=== PATIENT | female | born 1985 | race Hispanic/Latino ===

== ENCOUNTER 2017-11-17 17:16 | Emergency (ER) | payer SELFPAY ==
[2017-11-17] MEDS ORDERED: HYDROXYZINE HCL 25 MG TABLET ONE (17:57)
[2017-11-17] MEDS ORDERED: METHYLPREDNISOLONE SOD SUCC 40MG/ML 1ML ONE (18:53)
== END 2017-11-17 19:37 | disposition home or self-care (01) ==
LOC: EDH 17:16
DX: F41.1 Generalized anxiety disorder (principal)
CPT/HCPCS: 99284; J2920

== ENCOUNTER 2021-07-22 08:44 | Emergency (ER) | payer SELFPAY ==
[~2021-07-22] VITALS: Ht 152.4 cm; Wt 99.8 kg
[2021-07-22 09:39] LABS: BASOPHILS % (AUTO) 0.3 % (0.0-5.0); EOSINOPHILS % (AUTO) 0.8 % (0.0-8.0); HEMATOCRIT 40.1 % (36-48); LYMPHOCYTES % (AUTO) 30.8 % (21.0-51.0); MEAN CORPUSCULAR HEMOGLOBIN 23.4 pg (27.0-33.0); MEAN CORPUSCULAR HGB CONC 31.2 g/dL (32.0-36.0); MEAN CORPUSCULAR VOLUME 75.1 fL (79-99); NEUTROPHILS % (AUTO) 61.8 % (40.0-77.0); PLATELET COUNT (AUTO) 389 K/uL (130-400); RED BLOOD CELL COUNT(AUTO) 5.34 MIL/uL (4.00-5.50); RED CELL DISTRIBUTION WIDTH 15.7 % (11.0-15.5); WHITE BLOOD COUNT (AUTO) 11.4 K/uL (4.8-10.8)
[2021-07-22 09:41] LABS: CREATININE 0.9 mg/dL (0.5-1.5); POTASSIUM 3.6 mmol/L (3.5-5.1)
[2021-07-22 09:46] LABS: ALBUMIN 3.5 g/dL (3.5-5.0); BILIRUBIN,TOTAL 0.2 mg/dL (0.2-1.0); TOTAL PROTEIN, SERUM 7.1 g/dL (6.0-8.3)
[2021-07-22] MEDS: ESTROGENS,CONJUGATED 25 MG/VIAL IV SCH ×4 (11:00→12:02)
[2021-07-22] MEDS ORDERED: ESTROGENS,CONJUGATED 25 MG/VIAL IM SCH ×2 (11:30→12:00)
[2021-07-22] MEDS ORDERED: NORE-134 PO (11:39)
[2021-07-22 12:30] VITALS: BP 126/74
== END 2021-07-22 13:06 | disposition home or self-care (01) ==
LOC: EDH 08:44
DX: N92.1 Excessive and frequent menstruation with irregular cycle (principal); N93.8 Other specified abnormal uterine and vaginal bleeding; E66.01 Morbid (severe) obesity due to excess calories; Z68.41 Body mass index [BMI] 40.0-44.9, adult
CPT/HCPCS: 36415; 80053; 84703; 85025; 86900; 86901; 96372; 99284; J1410 ×2

== ENCOUNTER 2021-07-26 16:04 | Emergency (ER) | payer SELFPAY ==
[~2021-07-26] VITALS: Ht 154.9 cm; Wt 99.8 kg
[~2021-07-26 16:04] MED LIST: NORE-134 PO
[2021-07-26 16:30] LABS: APPEARANCE,URINE SL CLOUDY (CLEAR); BILIRUBIN,URINE MODERATE (NEGATIVE); COLOR,URINE ORANGE (YELLOW); GLUCOSE, URINE (UA) NEGATIVE (NEGATIVE); KETONES,URINE >=80 mg/dL (NEGATIVE); LEUKOCYTE ESTERASE ,URINE TRACE (NEGATIVE); NITRATE,URINE POSITIVE (NEGATIVE); OCCULT BLOOD,URINE LARGE (NEGATIVE); PROTEIN,URINE >=300 mg/dL (NEGATIVE)
[2021-07-26 16:37] LABS: BACTERIA,URINE Few /HPF (None Seen); MUCUS,URINE Few LPF (None Seen); SQUAMOUS EPITHELIAL CELL,UR Few /HPF (0-2)
[2021-07-26 16:43] LABS: BASOPHILS % (AUTO) 0.5 % (0.0-5.0); EOSINOPHILS % (AUTO) 0.3 % (0.0-8.0); HEMATOCRIT 32.8 % (36-48); LYMPHOCYTES % (AUTO) 21.7 % (21.0-51.0); MEAN CORPUSCULAR HEMOGLOBIN 23.8 pg (27.0-33.0); MEAN CORPUSCULAR VOLUME 74.4 fL (79-99); MONOCYTES % (AUTO) 5.6 % (3.0-13.0); NEUTROPHILS % (AUTO) 71.7 % (40.0-77.0); PLATELET COUNT (AUTO) 289 K/uL (130-400); RED BLOOD CELL COUNT(AUTO) 4.41 MIL/uL (4.00-5.50); RED CELL DISTRIBUTION WIDTH 15.6 % (11.0-15.5); WHITE BLOOD COUNT (AUTO) 10.6 K/uL (4.8-10.8)
[2021-07-26] MEDS ORDERED: 0.9%NACL 1000ML 1,000 ML IV ONE ×2 (17:00→17:09)
[2021-07-26] MEDS ORDERED: CEFTRIAXONE 1G VIAL IVP ONE (17:00)
[2021-07-26 17:12] VITALS: BP 122/75
[2021-07-26] MEDS ORDERED: CEPH500B PO (17:49)
== END 2021-07-26 18:05 | disposition home or self-care (01) ==
LOC: EDH 16:04
DX: N39.0 Urinary tract infection, site not specified (principal); D25.9 Leiomyoma of uterus, unspecified; N93.8 Other specified abnormal uterine and vaginal bleeding; E66.9 Obesity, unspecified; Z68.41 Body mass index [BMI] 40.0-44.9, adult
CPT/HCPCS: 36415; 81001; 84703; 85025; 86850; 86900; 86901; 87077; 87088; 87186; 96361; 96374; 99283; J0696; J7030

== ENCOUNTER 2021-08-03 09:26 | Emergency (ER) | payer SELFPAY ==
[~2021-08-03] VITALS: Ht 154.9 cm; Wt 99.8 kg
[~2021-08-03 09:26] MED LIST changes: +CEPH500B PO
[2021-08-03 10:01] LABS: BASOPHILS % (AUTO) 0.2 % (0.0-5.0); EOSINOPHILS % (AUTO) 1.3 % (0.0-8.0); HEMATOCRIT 33.5 % (36-48); LYMPHOCYTES % (AUTO) 22.8 % (21.0-51.0); MEAN CORPUSCULAR HEMOGLOBIN 23.2 pg (27.0-33.0); MEAN CORPUSCULAR VOLUME 74.8 fL (79-99); MONOCYTES % (AUTO) 5.7 % (3.0-13.0); NEUTROPHILS % (AUTO) 69.8 % (40.0-77.0); PLATELET COUNT (AUTO) 320 K/uL (130-400); RED BLOOD CELL COUNT(AUTO) 4.48 MIL/uL (4.00-5.50); RED CELL DISTRIBUTION WIDTH 15.9 % (11.0-15.5); WHITE BLOOD COUNT (AUTO) 8.3 K/uL (4.8-10.8)
[2021-08-03 10:12] LABS: CREATININE 0.8 mg/dL (0.5-1.5); POTASSIUM 4.2 mmol/L (3.5-5.1)
[2021-08-03 10:17] LABS: ALBUMIN 3.3 g/dL (3.5-5.0); BILIRUBIN,TOTAL 0.2 mg/dL (0.2-1.0); TOTAL PROTEIN, SERUM 7.4 g/dL (6.0-8.3)
[2021-08-03 10:32] LABS: APPEARANCE,URINE Clear (CLEAR); BILIRUBIN,URINE Negative (NEGATIVE); COLOR,URINE Yellow (YELLOW); GLUCOSE, URINE (UA) Negative (NEGATIVE); KETONES,URINE Negative (NEGATIVE); LEUKOCYTE ESTERASE ,URINE Trace (NEGATIVE); NITRATE,URINE Negative (NEGATIVE); OCCULT BLOOD,URINE Large (NEGATIVE); PH,URINE 5.5 (5.0-8.0); PROTEIN,URINE Trace mg/dL (NEGATIVE); UROBILINOGEN,URINE 0.2 mg/dL (0.2-1.0)
[2021-08-03 10:33] LABS: HCG,QUAL RESULT NEGATIVE (NEGATIVE)
[2021-08-03 10:40] LABS: BACTERIA,URINE Rare /HPF (None Seen); MUCUS,URINE Few LPF (None Seen); SQUAMOUS EPITHELIAL CELL,UR Few /HPF (0-2); WBC,URINE 0-1 /HPF (0-1)
[2021-08-03 12:57] VITALS: BP 158/86
== END 2021-08-03 13:40 | disposition home or self-care (01) ==
LOC: EDH 09:26
DX: N93.8 Other specified abnormal uterine and vaginal bleeding (principal); D25.9 Leiomyoma of uterus, unspecified; E66.9 Obesity, unspecified; Z68.41 Body mass index [BMI] 40.0-44.9, adult; Z79.899 Other long term (current) drug therapy; Z98.890 Other specified postprocedural states; Z90.89 Acquired absence of other organs
CPT/HCPCS: 36415; 80053; 81001; 81025; 85025; 86850; 86900; 86901

== ENCOUNTER 2022-09-02 17:59 | Emergency (ER) | payer OTHER ==
[~2022-09-02] VITALS: Ht 154.9 cm; Wt 99.8 kg
[2022-09-02] MEDS ORDERED: LORAZEPAM 2 MG/ML 1 ML VIAL IM ONE (20:00)
[2022-09-02 20:28] VITALS: BP 159/63
[2022-09-03] MEDS ORDERED: HYDR-3422 PO (22:32)
== END 2022-09-02 20:34 | disposition home or self-care (01) ==
LOC: EDH 17:59
DX: F41.9 Anxiety disorder, unspecified (principal); D64.9 Anemia, unspecified; F32.A Depression, unspecified; Z98.890 Other specified postprocedural states; Z90.89 Acquired absence of other organs
CPT/HCPCS: 99283; 96372; J2060

== ENCOUNTER 2022-09-03 20:46 | Emergency (ER) | payer OTHER ==
[~2022-09-03] VITALS: Ht 154.9 cm; Wt 101.6 kg
[2022-09-03 22:19] VITALS: BP 138/74
[2022-09-03] MEDS ORDERED: LORAZEPAM 1 MG TABLET PO ONE (22:30)
[2022-09-03] MEDS ORDERED: HYDR-3422 PO (22:32)
[2022-09-03 22:39] LABS: APPEARANCE,URINE CLOUDY (CLEAR); BILIRUBIN,URINE NEGATIVE (NEGATIVE); COLOR,URINE YELLOW (YELLOW); GLUCOSE, URINE (UA) NEGATIVE (NEGATIVE); KETONES,URINE NEGATIVE (NEGATIVE); LEUKOCYTE ESTERASE ,URINE 75 Leu/uL (NEGATIVE); NITRATE,URINE NEGATIVE (NEGATIVE); OCCULT BLOOD,URINE NEGATIVE (NEGATIVE); PH,URINE 5.5 (5.0-8.0); PROTEIN,URINE 10 mg/dL (NEGATIVE); UROBILINOGEN,URINE 0.2 mg/dL (0.2-1.0)
[2022-09-03 22:41] LABS: HCG,QUALITATIVE URINE NEGATIVE (NEGATIVE)
[2022-09-03 22:45] LABS: BACTERIA,URINE FEW /HPF (None Seen); MUCUS,URINE RARE LPF (None Seen); SQUAMOUS EPITHELIAL CELL,UR MOD /HPF (0-2)
== END 2022-09-03 23:01 | disposition home or self-care (01) ==
LOC: EDH 20:46
DX: F41.9 Anxiety disorder, unspecified (principal); F32.A Depression, unspecified
CPT/HCPCS: 81001; 81025; 87088; 93005

== ENCOUNTER 2022-09-05 20:16 | Emergency (ER) | payer OTHER ==
[~2022-09-05] VITALS: Ht 154.9 cm; Wt 100.2 kg
[~2022-09-05 20:16] MED LIST changes: +HYDR-3422 PO
[2022-09-05 20:18] VITALS: BP 143/68
[2022-09-05] MEDS ORDERED: HYDR-3421 PO (21:22)
[2022-09-05] MEDS ORDERED: LORAZEPAM 1 MG TABLET PO ONE (21:30)
== END 2022-09-05 21:57 | disposition home or self-care (01) ==
LOC: EDH 20:16
DX: F41.9 Anxiety disorder, unspecified (principal); E66.01 Morbid (severe) obesity due to excess calories; Z68.41 Body mass index [BMI] 40.0-44.9, adult

== ENCOUNTER 2023-04-25 14:41 | Emergency (ER) | payer BC, OTHER ==
[~2023-04-25] VITALS: Ht 154.9 cm; Wt 99.8 kg
[~2023-04-25 14:41] MED LIST changes: +HYDR-3421 PO
[2023-04-25 14:42] VITALS: BP 141/91
[2023-04-25] MEDS ORDERED: HYDROXYZINE 25 MG TABLET PO SCH (17:30)
[2023-04-25 17:51] LABS: APPEARANCE,URINE CLOUDY (CLEAR); BILIRUBIN,URINE NEGATIVE (NEGATIVE); COLOR,URINE YELLOW (YELLOW); GLUCOSE, URINE (UA) NEGATIVE (NEGATIVE); KETONES,URINE 60 mg/dL (NEGATIVE); LEUKOCYTE ESTERASE ,URINE 75 Leu/uL (NEGATIVE); NITRATE,URINE NEGATIVE (NEGATIVE); OCCULT BLOOD,URINE NEGATIVE (NEGATIVE); PH,URINE 5.5 (5.0-8.0); PROTEIN,URINE 20 mg/dL (NEGATIVE); UROBILINOGEN,URINE 0.2 mg/dL (0.2-1.0)
[2023-04-25 17:55] LABS: BACTERIA,URINE RARE /HPF (None Seen); MUCUS,URINE FEW LPF (None Seen); RBC,URINE 0-1 /HPF (0-1); SQUAMOUS EPITHELIAL CELL,UR MOD /HPF (0-2)
[2023-04-25 17:58] LABS: HCG,QUALITATIVE URINE NEGATIVE (NEGATIVE)
[2023-04-25 18:15] LABS: BASOPHILS % (AUTO) 0.3 % (0.0-5.0); EOSINOPHILS % (AUTO) 0.8 % (0.0-8.0); HEMATOCRIT 45.6 % (36-48); LYMPHOCYTES % (AUTO) 23.9 % (21.0-51.0); MEAN CORPUSCULAR HEMOGLOBIN 25.1 pg (27.0-33.0); MEAN CORPUSCULAR HGB CONC 32.5 g/dL (32.0-36.0); MEAN CORPUSCULAR VOLUME 77.4 fL (79-99); NEUTROPHILS % (AUTO) 68.8 % (40.0-77.0); PLATELET COUNT (AUTO) 231 K/uL (130-400); RED BLOOD CELL COUNT(AUTO) 5.89 MIL/uL (4.00-5.50); RED CELL DISTRIBUTION WIDTH 14.6 % (11.0-15.5); WHITE BLOOD COUNT (AUTO) 8.8 K/uL (4.8-10.8)
[2023-04-25] MEDS ORDERED: HYDR-3421 PO (18:22)
[2023-04-25 18:24] LABS: CREATININE 0.9 mg/dL (0.5-1.5); POTASSIUM 3.7 mmol/L (3.5-5.1)
[2023-04-25 18:30] LABS: ALBUMIN 3.8 g/dL (3.5-5.0); TOTAL PROTEIN, SERUM 7.4 g/dL (6.0-8.3)
[2023-04-25] MEDS ORDERED: CEPH500B PO (18:39)
== END 2023-04-25 19:51 | disposition home or self-care (01) ==
LOC: EDH 14:41
DX: F41.9 Anxiety disorder, unspecified (principal); F32.A Depression, unspecified; Z90.89 Acquired absence of other organs; Z90.710 Acquired absence of both cervix and uterus; Z98.890 Other specified postprocedural states; Z79.899 Other long term (current) drug therapy
CPT/HCPCS: 36415; 80053; 81001; 81025; 85025; 87088

== ENCOUNTER 2023-05-31 13:11 | Emergency (ER) | payer BC ==
[~2023-05-31] VITALS: Ht 160 cm; Wt 100.7 kg
[2023-05-31 14:03] LABS: BASOPHILS % (AUTO) 0.4 % (0.0-5.0); HEMATOCRIT 46.8 % (36-48); LYMPHOCYTES % (AUTO) 20.1 % (21.0-51.0); MEAN CORPUSCULAR HGB CONC 31.8 g/dL (32.0-36.0); MEAN CORPUSCULAR VOLUME 78.7 fL (79-99); MONOCYTES % (AUTO) 6.4 % (3.0-13.0); NEUTROPHILS % (AUTO) 71.8 % (40.0-77.0); PLATELET COUNT (AUTO) 198 K/uL (130-400); RED BLOOD CELL COUNT(AUTO) 5.95 MIL/uL (4.00-5.50); RED CELL DISTRIBUTION WIDTH 15.1 % (11.0-15.5); WHITE BLOOD COUNT (AUTO) 7.6 K/uL (4.8-10.8)
[2023-05-31 14:18] LABS: CREATININE 0.8 mg/dL (0.5-1.5)
[2023-05-31 14:23] LABS: ALBUMIN 3.4 g/dL (3.5-5.0); MAGNESIUM 1.9 mg/dL (1.80-2.40); TOTAL PROTEIN, SERUM 6.5 g/dL (6.0-8.3)
[2023-05-31 14:27] LABS: B-TYPE NATRIURETIC PEPTIDE < 5 pg/mL (0-100)
[2023-05-31 16:07] VITALS: BP 110/69; PULSE 82; RESP 19; O2SAT 96
== END 2023-05-31 17:35 | disposition home or self-care (01) ==
LOC: EDH 13:11
DX: R53.83 Other fatigue (principal); F41.9 Anxiety disorder, unspecified; E66.9 Obesity, unspecified; Z68.39 Body mass index [BMI] 39.0-39.9, adult
CPT/HCPCS: 36415; 71045; 80053; 83735; 83880; 84443; 84484; 85025; 85378; 93005

== ENCOUNTER 2023-06-28 19:24 | Emergency (ER) | payer BC, MEDICAID ==
[~2023-06-28] VITALS: Ht 154.9 cm; Wt 101.2 kg
[2023-06-28 19:26] VITALS: BP 137/81; PULSE 110; RESP 16
== END 2023-06-28 20:56 | disposition left against medical advice (07) ==
LOC: EDH 19:24
DX: R42 Dizziness and giddiness (principal); F41.0 Panic disorder [episodic paroxysmal anxiety]; Z53.21 Procedure and treatment not carried out due to patient leaving prior to being seen by health care provider
CPT/HCPCS: 93005

== ENCOUNTER → 2024-02-22 | Outpatient (CLI) | payer MEDICAID | END | disposition home or self-care (01) | LOC: SHCH 08:40 | PROVIDERS: ATTEND Internal Medicine Cardiovascular Disease | DX: I87.2 Venous insufficiency (chronic) (peripheral) (principal); I73.9 Peripheral vascular disease, unspecified | CPT/HCPCS: 93925; 93970 ==

== ENCOUNTER 2025-04-29 18:55 | Emergency (ER) | payer OTHER, MEDICARE ==
[~2025-04-29] VITALS: Ht 157.5 cm; Wt 99.8 kg
[2025-04-29 19:43] LABS: BASOPHILS # (AUTO) 0.04 K/uL (0.00-0.20); BASOPHILS % (AUTO) 0.5 % (0.0-5.0); EOSINOPHILS # (AUTO) 0.18 K/uL (0.00-0.70); EOSINOPHILS % (AUTO) 2.1 % (0.0-8.0); HEMATOCRIT 46.5 % (36-48); IMMATURE GRANULOCYTE ABSOLUTE 0.02 K/uL (0-1); LYMPHOCYTES # (AUTO) 2.7 K/uL (1.0-4.8); LYMPHOCYTES % (AUTO) 32.3 % (21.0-51.0); MEAN CORPUSCULAR HEMOGLOBIN 25.7 pg (27.0-33.0); MEAN CORPUSCULAR HGB CONC 32.5 g/dL (32.0-36.0); MEAN CORPUSCULAR VOLUME 79.1 fL (79-99); MONOCYTES # (AUTO) 0.5 K/uL (0.1-1.0); MONOCYTES % (AUTO) 5.8 % (3.0-13.0); NEUTROPHILS % (AUTO) 59.1 % (40.0-77.0); PLATELET COUNT (AUTO) 246 K/uL (130-400); RED BLOOD CELL COUNT(AUTO) 5.88 MIL/uL (4.00-5.50); RED CELL DISTRIBUTION WIDTH 14.6 % (11.0-15.5); WHITE BLOOD COUNT (AUTO) 8.4 K/uL (4.8-10.8)
[2025-04-29 19:49] LABS: CREATININE 0.7 mg/dL (0.5-1.0); POTASSIUM 3.8 mmol/L (3.5-5.1)
[2025-04-29 20:00] LABS: APPEARANCE,URINE CLEAR (CLEAR); BILIRUBIN,URINE SMALL mg/dL (NEGATIVE); COLOR,URINE YELLOW (YELLOW); GLUCOSE, URINE (UA) NEGATIVE (NEGATIVE); KETONES,URINE NEGATIVE (NEGATIVE); LEUKOCYTE ESTERASE ,URINE NEGATIVE Leu/uL (NEGATIVE); NITRATE,URINE NEGATIVE (NEGATIVE); OCCULT BLOOD,URINE NEGATIVE (NEGATIVE); PROTEIN,URINE TRACE mg/dL (NEGATIVE); UROBILINOGEN,URINE 0.2 mg/dL (0.2-1.0)
[2025-04-29 20:05] LABS: ADD UA MICROSCOPIC YES
[2025-04-29 20:08] LABS: BACTERIA,URINE Rare /HPF (None Seen); RBC,URINE None Seen /HPF (0-1); SQUAMOUS EPITHELIAL CELL,UR None Seen /HPF (0-2); WBC,URINE 0-1 /HPF (0-1)
[2025-04-29] MEDS ORDERED: 0.9%NACL 1000ML IV ONE (20:31)
[2025-04-29] MEDS: 0.9%NACL 1000ML 1,002 ML IV ONE (20:31)
--- NOTE | 2025-04-29 20:56 | ERN ---
General Chief Complaint: Fatigue Stated Complaint: FATIGUE Time Seen by MD: 19:27 History of Present Illness Initial Comments Flor is a very pleasant 39-year-old female comes in today with a chief complaint of fatigue. Patient reports that she sees a primary care doctor and states that she often is dehydrated. Patient reports that she has a history of iron-deficiency anemia but reports her iron is doing well. Patient reports he only sleeps 3 hours a day. Patient states that she continues to have fatigue in his concerned about this and wants to see the get this evaluated Allergies: Coded Allergies: No Known Allergies (Unverified Allergy, Unknown, 07/22/21) Home Meds No Active Prescriptions or Reported Meds Past Medical History Past Medical History: Anemia, Anxiety, Arrythmia, Depression Medical History Other: MICROCELIAC ANEMIA, obesity, LUPUS, Past Surgical History: Hysterectomy Surgical History Other: None Family History Family History: Negative Social History Social History: Negative, Lives with family Female( History) : 1 Para: 1 ROS Dictation Constitutional: Negative for fever,chills, and weight loss Eyes: Negative for injury, pain,redness, and discharge ENT: Negative for injury,pain or swelling Cardiovascular: Negative for chest pain, palpitations, and edema Respiratory: Negative for shortness of breath, cough, and wheezing, Abdomen/GI: Negative for abdominal pain, nausea, vomiting, diarrhea, and constipation Back: Negative for injury and pain : Negative for injury, bleeding and discharge MS/Extremity: Negative for injury and deformity Skin: Negative for rash, and discoloration Neuro: Positive for fatigue Psych: Negative for suicide ideation, homicidal ideation, and hallucinations Physical Exam Physical Exam Dictation General: awake, alert, NAD Head/Face: Normocephalic, atraumatic Eyes: PERRL, EOMI, vision at baseline ENT: oral cavity clear, TMs clear, no signs of infection Neck: Trachea midline, supple, no nuchal rigidity Cardiovascular: RRR, normal S1/S2, No MRGs, no JVD Respiratory: CTAB, no respiratory distress, No rales or wheezes Abdomen: Soft, non-tender, non-distended, normal bowel sounds, no guarding or rebound. Skin: Warm, dry, normal turgor, no rash MS/Extremity: Pulses equal, no cyanosis, neurovascular intact, FROM Neuro: COAx4, GCS 15, strength 5/5, CN 2-12 intact, normal cerebellar exam, normal gait, Psych: Normal behavior, mood, and affect normal Results Laboratory and Microbiology Lab and Micro Result Laboratory Tests Test 04/29/25 19:28 04/29/25 19:30 White Blood Count 8.4 K/uL (4.8-10.8) Red Blood Count 5.88 MIL/uL (4.00-5.50) H Hemoglobin 15.1 g/dL (12.0-16.0) Hematocrit 46.5 % (36-48) Mean Corpuscular Volume 79.1 fL (79-99) Mean Corpuscular Hemoglobin 25.7 pg (27.0-33.0) L Mean Corpuscular Hemoglobin Concent 32.5 g/dL (32.0-36.0) Red Cell Distribution Width 14.6 % (11.0-15.5) Platelet Count 246 K/uL (130-400) Mean Platelet Volume 11.2 fL (7.5-10.5) H Immature Granulocyte % (Auto) 0.2 % (0-1) Neutrophils (%) (Auto) 59.1 % (40.0-77.0) Lymphocytes (%) (Auto) 32.3 % (21.0-51.0) Monocytes (%) (Auto) 5.8 % (3.0-13.0) Eosinophils (%) (Auto) 2.1 % (0.0-8.0) Basophils (%) (Auto) 0.5 % (0.0-5.0) Neutrophils # (Auto) 5.0 K/uL (1.8-7.7) Lymphocytes # (Auto) 2.7 K/uL (1.0-4.8) Monocytes # (Auto) 0.5 K/uL (0.1-1.0) Eosinophils # (Auto) 0.18 K/uL (0.00-0.70) Basophils # (Auto) 0.04 K/uL (0.00-0.20) Absolute Immature Granulocyte (auto 0.02 K/uL (0-1) Nucleated Red Blood Cells 0.0 % (0.0-0.19) Sodium Level 138 mmol/L (136-145) Potassium Level 3.8 mmol/L (3.5-5.1) Chloride Level 102 mmol/L (101-111) Carbon Dioxide Level 28 mmol/L (21-32) Blood Urea Nitrogen 10 mg/dL (7-18) Creatinine 0.7 mg/dL (0.5-1.0) Glomerular Filtration Rate Calc 113 mL/min (>90) Random Glucose 99 mg/dL (70-105) Total Calcium 9.2 mg/dL (8.5-10.1) Troponin I High Sensitivity 9 ng/L (4-50) Urine Color YELLOW (YELLOW) Urine Appearance CLEAR (CLEAR) Urine pH 6.0 (5.0-8.0) Urine Specific [place] 1.023 (1.001-1.031) Urine Protein TRACE mg/dL (NEGATIVE) H Urine Glucose (UA) NEGATIVE mg/dL (NEGATIVE) Urine Ketones NEGATIVE mg/dL (NEGATIVE) Urine Occult Blood NEGATIVE (NEGATIVE) Urine Nitrate NEGATIVE (NEGATIVE) Urine Bilirubin SMALL mg/dL (NEGATIVE) H Urine Urobilinogen 0.2 mg/dL (0.2-1.0) Urine Leukocyte Esterase NEGATIVE Christina/uL Urine RBC None Seen /HPF (0-1) Urine WBC 0-1 /HPF (0-1) Urine Squamous Epithelial Cells None Seen /HPF (0-2) Urine Bacteria Rare /HPF (None Seen) MDM Patient has improved with fluids. Electrolytes look within normal limits. Advised the patient to meet up with your primary care physician and discuss sleeping habits as well as other causes of fatigue Patient verbalized understanding MDM: Differential diagnosis: Fatigue, increased sleep that Rationale: Tests considered and ordered secondary to shared decision making include: Previous outside records reviewed: Old ER visits. Risk of complication and/or morbidity or mortality of patient management: None Medications-Per medication reconciliation Need for hospitalization: Patient does not meet criteria for hospitalization. Need for emergency major/minor surgery: No There are no social concerns with this patient. Prescription drug management Prescriptions will include symptomatic care Patient's prior external medical records from other ER visits were reviewed by me as indicated. Prior testing and results from previous visits were reviewed. Prior tests were taken into account with medical decision making and resource utilization, independent historian/historians were used to obtain complete medical history. I independently interpreted the test that were performed, results were reviewed by me and considered findings on radiology if ordered. Medical management and examination interpretation discussions were had by me with other qualified healthcare professionals as indicated for the patient's care. ED Course Orders Procedure Category Date Status Time Cbc With Differential LAB 04/29/25 Complete 19:01 Troponin I High LAB 04/29/25 Complete Sensitivity 19:01 Urinalysis Profile LAB 04/29/25 Complete 19:01 Basic Metabolic Panel LAB 04/29/25 Complete 19:01 12 Lead Ekg Tracing- EKG 04/29/25 Logged Technical 19:01 0.9%Nacl 1000ml (Ns PHA 04/29/25 In Process 1000ml) 20:30 Current Medications Medications (Trade) Dose Ordered Sig/Nano Route PRN Reason Start Time Stop Time Status Last Admin Dose Admin Sodium Chloride 1,002 ml @ 334 mls/hr ONCE ONCE IV 04/29/25 20:30 04/29/25 23:29 04/29/25 20:31 Vital Signs Date Time Temp Pulse Resp B/P (MAP) Pulse Ox O2 Delivery O2 Flow Rate FiO2 04/29/25 19:28 98.6 85 14 153/91 96 Room Air* 0 21 04/29/25 18:56 98.1 85 14 153/91 96 Room Air 0 DX & DISP Disposition: Discharge Departure Impression: Primary Impression: Fatigue Condition: Stable Scripts No Active Prescriptions or Reported Meds Additional Instructions: Please follow up with your primary care physician for further evaluation and care of route causes of fatigue. Consider improving your sleep from 3 hours to 7-8 hours Referrals: ANA MARÍA SULLIVAN MD (PCP) KRYSTAL MEANS MD Apr 29, 2025 20:56
[2025-04-29 21:41] VITALS: BP 122/74; PULSE 80; RESP 14; TEMP 98.6; O2SAT 96
--- NOTE | 2025-04-30 06:40 | EKG ---
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
== END 2025-04-29 21:42 | disposition home or self-care (01) ==
LOC: EDH 18:55
DX: F41.9 Anxiety disorder, unspecified (principal); R53.83 Other fatigue; E66.9 Obesity, unspecified; Z90.710 Acquired absence of both cervix and uterus
CPT/HCPCS: 99284; 84484; 80048; 85025; 81001; 36415; 93005; J7030